=== PATIENT | male | born 1990 | race African-American/Black ===

== ENCOUNTER 2018-06-22 16:28 | Emergency (ER) | payer SELFPAY ==
[~2018-06-22] VITALS: Ht 185.4 cm; Wt 65.8 kg
[2018-06-22 16:30] VITALS: BP 139/94
[2018-06-22] MEDS ORDERED: DIPHTH,PERTUSS(ACELL),TET TOX 0.5 ML DISP.SYRIN. VAX IM ONE (17:15)
--- NOTE | 2018-06-22 17:15 | PHYS DOC ---
Past Medical History Past Medical History: No Pertinent History Past Surgical History: No Surgical History Alcohol Use: None Drug Use: None Adult General Chief Complaint Chief Complaint: LACERATION/AVULSION HPI HPI Patient is a 27 year old male who presents with right hand pain. Patient was running from police, fell injuring his right hand possibly on glass. Patient is uncertain as to when his last tetanus shot was. Patient denies any other complaints. Patient denies any numbness, tingling, paresthesias. Denies any weakness. Reports that the pain is mild. [] Review of Systems Review of Systems Constitutional: Denies fever or chills [] Eyes: Denies change in visual acuity, redness, or eye pain [] HENT: Denies nasal congestion or sore throat [] Respiratory: Denies cough or shortness of breath [] Cardiovascular: No chest pain or palpitations[] GI: Denies abdominal pain, nausea, vomiting, bloody stools or diarrhea [] : Denies dysuria or hematuria [] Musculoskeletal: Denies back pain or joint pain [] Integument: See history of present illness[] Neurologic: Denies headache, focal weakness or sensory changes [] Endocrine: Denies polyuria or polydipsia [] All other systems were reviewed and found to be within normal limits, except as documented in this note. Allergies Allergies Allergies Coded Allergies Type Severity Reaction Last Updated Verified No Known Drug Allergies 06/22/18 No Physical Exam Physical Exam Constitutional: Well developed, well nourished, no acute distress, non-toxic appearance. [] HENT: Normocephalic, atraumatic, bilateral external ears normal, oropharynx moist, no oral exudates, nose normal. [] Eyes: PERRLA, EOMI, conjunctiva normal, no discharge. [] Neck: Normal range of motion, no tenderness, supple, no stridor. [] Cardiovascular:Heart rate regular rhythm, no murmur [] Lungs & Thorax: Bilateral breath sounds clear to auscultation [] Abdomen: Bowel sounds normal, soft, no tenderness, no masses, no pulsatile masses. [] Skin: Laceration right palm at the base of the long finger, chevron-shaped, 1.5 cm long, no foreign body identified. FDS, FDP, and extensor mechanisms are all intact. 2 point discrimination is less than 5 mm. No pain with axial loading. Joint above and below were evaluated and were normal.[] Back: No tenderness, no CVA tenderness. [] Extremities: No tenderness, no cyanosis, no clubbing, ROM intact, no edema. [] Neurologic: Alert and oriented X 3, normal motor function, normal sensory function, no focal deficits noted. [] Psychologic: Affect normal, judgement normal, mood normal. [] EKG EKG [] Radiology/Procedures Radiology/Procedures [] Course & Med Decision Making Course & Med Decision Making Pertinent Labs and Imaging studies reviewed. (See chart for details) ED course: Patient arrived, was placed in bed, tolerated exam well. Patient had the wound repaired with any complications. Patient was discharged in improved condition. Medical decision making: There is no evidence of a fracture, dislocation, retained foreign body, intractable bleeding. No evidence of neuro or vascular compromise.[] Dragon Disclaimer Dragon Disclaimer This electronic medical record was generated, in whole or in part, using a voice recognition dictation system. Departure Departure Impression: Primary Impression: Laceration of right hand Disposition: 01 HOME, SELF-CARE Condition: GOOD Referrals: UNKNOWN PCP NAME (PCP) Patient Instructions: Laceration Care, Adult, Sterile Tape Wound Closure Additional Instructions: Follow-up with your regular doctor in 2 days for a wound check. If you do not have regular doctor, list of local low-cost clinics will be provided for you. Keep the wound clean and dry. Return to the ER if worsening pain, redness, purulent looking drainage, or any other concerns. Laceration Repair Lac Repair Indication: [] Procedure: The patient was placed in the appropriate position and anesthesia around the was not administered. The area was then cleansed. The laceration was closed with Steri-Strips and skin glue. The wound area was then dressed with sterile dressing. Total repaired wound length: 0.5 cm. Other Items: None The patient tolerated the procedure well. Complications: None. Problem Qualifiers Primary Impression: Laceration of right hand Encounter type: initial encounter Foreign body presence: without foreign body Qualified Codes: S61.411A - Laceration without foreign body of right hand , initial encounter DANYCARTER KAMARA Jun 22, 2018 17:15
== END 2018-06-22 17:28 | disposition home or self-care (01) ==
LOC: ER 16:28
DX: S61.411A Laceration without foreign body of right hand, initial encounter (principal); W18.39XA Other fall on same level, initial encounter; Y93.02 Activity, running; Y92.89 Other specified places as the place of occurrence of the external cause; Y99.8 Other external cause status
CPT/HCPCS: 12001; 90471; 90715; 99283-25

== ENCOUNTER 2020-02-27 10:59 | Emergency (ER) | payer SELFPAY ==
[~2020-02-27] VITALS: Ht 180.3 cm; Wt 64.9 kg
[2020-02-27 12:12] VITALS: BP 148/79
--- NOTE | 2020-02-27 12:20 | PHYS DOC ---
Past Medical History Past Medical History: No Pertinent History (JAMAR RAMIREZ EMPLOYMENT OFFICER) Past Surgical History: No Surgical History (JAMAR RAMIREZ EMPLOYMENT OFFICER) Smoking Status: Current Every Day Smoker Alcohol Use: None Drug Use: None (AJMAR RAMIREZ EMPLOYMENT OFFICER) General Adult EDM: Chief Complaint: MULTIPLE COMPLAINTS HPI: HPI: Patient is a 29 year old male who presents with 2 days of dizziness after he was smoking drugs with his friend. He states that his friend smokes crack cocaine but he does K2 because he is on probation. He states that his smoking apparatus had a different color, smell and taste to it and he thinks that somebody else blew into it. He states that he does not think the drugs were laced but since this happened he is to have the dizziness and muscle aches. He states that he really just wants to be checked for COVID to make sure that he did not catch anything from anyone. He states he does not know of anybody having it. He states that he also has white little bugs or " wormlike" things crawling or going in and out of the skin. Patient denies nausea, vomiting, fever, cough, shortness of breath, headache, vision changes, numbness or tingling, diarrhea, abdominal pain, focal weakness, syncope. He states that he has had a surgery on his knee in the past. He states that he has low back muscle aching nonradiating pain that he rates a 4 out of 10. (JAMAR RAMIREZ EMPLOYMENT OFFICER) Review of Systems: Review of Systems: Constitutional: Denies fever or chills. [place]. [] Eyes: Denies change in visual acuity. [] HENT: Denies nasal congestion or sore throat. [] Respiratory: Denies cough or shortness of breath. [] Cardiovascular: Denies chest pain or edema. [] GI: Denies abdominal pain, nausea, vomiting, bloody stools or diarrhea. [] : Denies dysuria. [] Musculoskeletal: Denies back pain or joint pain. Generalized body aches. [] Integument: Denies rash. [] Neurologic: Denies headache, focal weakness or sensory changes. Dizziness. [] Endocrine: Denies polyuria or polydipsia. [] Lymphatic: Denies swollen glands. [] Psychiatric: Denies depression or anxiety. [] (JAMAR RAMIREZ APRN) Heart Score: Risk Factors: Risk Factors: DM, Current or recent (<one month) smoker, HTN, HLP, family history of CAD, obesity. Risk Scores: Score 0 - 3: 2.5% MACE over next 6 weeks - Discharge Home Score 4 - 6: 20.3% MACE over next 6 weeks - Admit for Clinical Observation Score 7 - 10: 72.7% MACE over next 6 weeks - Early Invasive Strategies (JAMAR RAMIREZ APRN) Allergies: Allergies: Allergies Coded Allergies Type Severity Reaction Last Updated Verified No Known Drug Allergies 06/22/18 No (JAMAR RAMIREZ APRN) Physical Exam: PE: Constitutional: Well developed, well nourished, no acute distress, non-toxic appearance. [] HENT: Normocephalic, atraumatic, bilateral external ears normal, oropharynx moist, no oral exudates, nose normal. [] Eyes: PERRLA, EOMI, conjunctiva normal, no discharge. [] Neck: Normal range of motion, no tenderness, supple, no stridor. [] Cardiovascular:Heart rate regular rhythm, no murmur [] Lungs & Thorax: Bilateral breath sounds clear to auscultation [] Abdomen: Bowel sounds normal, soft, no tenderness, no masses, no pulsatile masses. [] Skin: Warm, dry, no erythema, no rash. [] Back: No tenderness, no CVA tenderness. [] Extremities: No tenderness, no cyanosis, no clubbing, ROM intact, no edema. [] Neurologic: Alert and oriented X 3, normal motor function, normal sensory function, no focal deficits noted. [] Psychologic: Affect normal, judgement normal, mood normal. Normal physical exam. [] (JAMAR RAMIREZ APRN) EKG: EK and read by Dr. Mejia as sinus rhythm and no STEMI. [] (JAMAR RAMIREZ APRN) Radiology/Procedures: Radiology/Procedures: [] Impression: [facility] [address] [place], [place] [id number] IMAGING REPORT Signed PATIENT: ELIS PIEDRA ACCOUNT: [id number] : 1990 LOCATION: ER AGE: 29 SEX: M EXAM STATUS: REG ER ORD. PHYSICIAN: JAMAR RAMIREZ APRN REASON: DIZZINESS PROCEDURE: PORTABLE CHEST 1V PORTABLE CHEST 1V Clinical indications: Dizziness. Findings: No acute lung infiltrate or pleural effusion or pulmonary edema or lung mass or pneumothorax is seen. The heart size, pulmonary vasculature, mediastinum and both collette are unremarkable. Impression: No acute radiographic abnormality is seen. Electronically signed by: Mariposa Ward MD (02/27/2020 1:19 PM) [id number] DICTATED and SIGNED BY: MARIPOSA WARD MD DATE: 02/27/201318 (JAMAR RAMIREZ APRN) Course & Med Decision Making: Course & Med Decision Making Pertinent Labs and Imaging studies reviewed. (See chart for details) See HPI. Alert and oriented x4. Ambulatory with a steady gait. Speaks in full complete sentences. Lungs are clear to auscultation all lobes. Patient is refusing to give a urine even though he admitted to smoking marijuana and K2 and he states occasionally crack cocaine. Patient is stable and sleeping. He is remains alert and oriented neurologically intact. Vital signs remain normal. Patient has given a urine sample. Urine is positive for cocaine, amphetamines, marijuana. Patient is stable and discharged home. COVID-19 CRITERIA: The patient was evaluated during the global COVID-19 pandemic, and that diagnosis was suspected/considered upon their initial presentation. Their evaluation, treatment and testing was consistent with current guidelines for patients who present with complaints or symptoms that may be related to COVID-19. [] (JAMAR RAMIREZ APRN) Course & Med Decision Making I have reviewed the PA/FLAT GRINDER OPERATOR's note and Plan of Care. I was available for consultation as needed during the patient's visit in the emergency department. I agree with the clinical impression, plans and disposition. (YARELIS MEJIA MD) Dana Disclaimer: Dragjil Disclaimer: This electronic medical record was generated, in whole or in part, using a voice recognition dictation system. (JAMAR RAMIREZ APRN) COVID-19 Patient Risks: Age 65 or older: No Sign of co-morbidity: Yes Exp to person + for COVID: No Exp to PUI: No Travel from affected area: No Lower respiratory symptoms: No Fever: No Other: Yes (MUSCLE ACHES, FATIGUE) (JAMAR RAMIREZ APRN) PPE Use: Full PPE with N95 mask or PAPR: Yes (JAMAR RAMIREZ APRN) Departure Departure Impression: Primary Impression: Dizziness Additional Impressions: Fatigue Qualified Codes: R53.83 - Other fatigue Substance abuse Person under investigation for COVID-19 Disposition: 01 HOME, SELF-CARE Condition: STABLE Referrals: UNKNOWN PCP NAME (PCP) Patient Instructions: Dizziness, [id number], Substance Abuse-Brief Additional Instructions: You have been tested for or diagnosed with COVID-19. It is an infection caused by a new type of coronavirus. COVID-19 will cause cold-like or mild flu symptoms in most. It can cause more severe symptoms like problems breathing in some. There is no treatment for COVID-19. The body will clear the infection over time. Self-care will help to ease discomfort. Steps to Take: Self-Care Rest as needed. Healthy habits may help you feel better. Steps include: Choose healthy foods including fruits and vegetables. Drink water throughout the day. Get plenty of sleep each night. If you smoke, try to quit. It may ease breathing. Avoid alcohol. Keep Others Healthy The virus can spread to others. Droplets are released every time you sneeze or cough. The droplets can get into the mouth, nose, or eyes of people near you and lead to infection. To lower the chances of spreading COVID-19 to others: Stay at home until your doctor has said it is safe to leave. If you tested positive this will mean staying isolated until both of the following are true: At least 7 days have passed since the start of illness. You are free of fever for at least 72 hours without the use of medicine. During this time: - Avoid public areas, events, or transportation. Do not return to work or school until your doctor has said it is safe to do so. - Call ahead if you need to go to a medical center. Let them know you may have COVID-19. It will help them guide you where to go. They may also ask you to wear a facemask when you come to the office. - If you call for emergency medical services, let them know you may have COVID- 19. While at home: - Try to avoid close contact with others. Stay about 6 feet away. - If possible, spend most of your time in a separate room from others. - Use a face mask if you will be in close contact with others such as sharing a room or vehicle. - Have someone wipe down common surfaces in the home. Use household juice packaging machines setter every day on areas like doorknobs, counters, or sinks. - Cough or sneeze into a tissue. Throw the tissue away right after use. If a tissue is not available, cough or sneeze into your elbow. - Wash your hands often. Wash them after sneezing or coughing. Use soap and water and wash for at least 20 seconds. Alcohol based hand machinery cleaner can be used if soap and barbie er is not available. - Do not prepare food for others. Avoid sharing personal items like forks, spoons, or toothbrushes. - Avoid close contact with pets while you are sick. There is no evidence of the virus passing to pets. This is a safety step until more is known about this virus. Isolation can be frustrating. Social interaction can help. Keep in touch with friends and family through phone and tech options. You can still interact with others in your home, just keep a safe distance of about 6 feet. Follow-up: Your doctors office will check in with you to see if there are any changes in your health. You may be asked to keep track of symptoms to share with them. They will also let you know when you are clear to be in public again. Problems to Look Out For: Contact your doctor if your recovery is not going as you expect. Get emergency care if you have problems such as: - Trouble breathing - Nonstop chest pain or pressure - Changes in awareness, confusion, or problems waking - Lips or face have bluish color - Worsening of symptoms If you think you have an emergency, call for emergency medical services right away. As taken from [facility] Justicifation of Admission Dx: Justifications for Admission: Justification of Admission Dx: N/A (JAMAR RAMIREZ APRN) JAMAR RAMIREZ APRN Feb 27, 2020 12:20 YARELIS MEJIA MD Feb 27, 2020 15:06
[2020-02-27 13:01] LABS: BASO % 1 % (0-3); EOS # 0.1 x10^3/uL (0.0-0.7); EOS % 1 % (0-3); HEMATOCRIT 46.4 % (39.0-53.0); LYMPH # 1.6 x10^3/uL (1.0-4.8); LYMPH % 29 % (24-48); MEAN CORPUSCULAR HEMOGLOBIN 33 pg (25-35); MEAN CORPUSCULAR HGB CONC 35 g/dL (31-37); MEAN CORPUSCULAR VOLUME 96 fL (79-100); MONO # 0.4 x10^3/uL (0.0-1.1); MONO % 7 % (0-9); NEUT # 3.3 x10^3/uL (1.8-7.7); NEUT % 62 % (31-73); PLATELET COUNT 243 x10^3/uL (140-400); RED BLOOD COUNT 4.84 x10^6/uL (4.30-5.70); RED CELL DISTRIBUTION WIDTH 13.9 % (11.5-14.5); WHITE BLOOD COUNT 5.4 x10^3/uL (4.0-11.0)
[2020-02-27 13:05] LABS: CALCIUM 9.6 mg/dL (8.5-10.1); CREATININE 1.2 mg/dL (0.7-1.3); GFR 87.2
[2020-02-27 13:11] LABS: ALBUMIN 4.1 g/dL (3.4-5.0); ALBUMIN/GLOBULIN RATIO 1.2 (1.0-1.7); TOTAL BILIRUBIN 1.1 mg/dL (0.2-1.0); TOTAL PROTEIN 7.4 g/dL (6.4-8.2)
--- NOTE | 2020-02-27 13:22 | RAD ---
PORTABLE CHEST 1V Clinical indications: Dizziness. Findings: No acute lung infiltrate or pleural effusion or pulmonary edema or lung mass or pneumothorax is seen. The heart size, pulmonary vasculature, mediastinum and both collette are unremarkable. Impression: No acute radiographic abnormality is seen. Electronically signed by: Lionel Ward MD (02/27/2020 1:19 PM) [id number]
[2020-02-27 13:48] LABS: BILIRUBIN,URINE SMALL (NEG); CLARITY,URINE CLEAR; NITRITE,URINE NEGATIVE (NEG); PH,URINE 5.5 (<5.0-8.0); PROTEIN,URINE 100 mg/dL (NEG-TRACE)
[2020-02-27 13:52] LABS: COLOR,URINE DK YELLOW
[2020-02-27 13:53] LABS: HYALINE CASTS, URINE OCCASIONAL /HPF; RBC,URINE 0 /HPF (0-2); WBC,URINE 0 /HPF (0-4)
[2020-02-27 13:54] LABS: BACTERIA,URINE 0 /HPF (0-FEW); SQUAMOUS EPITHELIAL CELL,UR OCC /LPF
[2020-02-27 13:55] LABS: BARBITURATES NEG (NEG); BENZODIAZEPINES NEG (NEG); CANNABINOIDS POS (NEG); COCAINE POS (NEG); METHADONE NEG (NEG); OPIATES NEG (NEG); PHENCYCLIDINE NEG (NEG)
[2020-02-27 13:59] LABS: AMPHETAMINE/METHAMPHETAMINE POS (NEG)
--- NOTE | 2020-02-28 02:46 | EKG ---
[facility] [address] [place] [id number] Test Date: 2020-02-27 Test Time: 12:23:52 Pat Name: ELIS PIEDRA Department: Room: Gender: M Manager Supplier: : 1990 Requested By: JAMAR RAMIREZ Order Number: [id number] Reading MD: Measurements Intervals [place] Rate: 67 P: 51 TN: 148 QRS: 77 QRSD: 88 T: 44 QT: 372 QTc: 396 Interpretive Statements SINUS RHYTHM ST & T ABNORMALITY, CONSIDER RECENT INFERIOR MYOCARDIAL OR PERICARDIAL DAMAGE ABNORMAL ECG RI6.02 No previous ECG available for comparison
== END 2020-02-27 14:32 | disposition home or self-care (01) ==
LOC: ER 10:59
DX: R42 Dizziness and giddiness (principal); Z20.828 Contact with and (suspected) exposure to other viral communicable diseases; R53.83 Other fatigue; F14.10 Cocaine abuse, uncomplicated; F17.200 Nicotine dependence, unspecified, uncomplicated
CPT/HCPCS: 36415; 71045; 80053; 80307; 81001; 84484; 85025; 93005; 99285; G0480; U0003